=== PATIENT | female | born 1955 | race African-American/Black ===

== ENCOUNTER 2017-07-09 12:50 | Inpatient (IN) | payer MEDICAID ==
[2017-07-09 13:42] LABS: BASOPHILS 0.1 % (0-2); EOSINOPHILS 0.1 % (0-7); HEMATOCRIT 37.5 % (36.0-48.0); HEMOGLOBIN 12.7 g/dL (12-16); IMMATURE GRANULOCYTES 0.3 % (0-5); LYMPHOCYTES 8.4 % (15-50); MCH 33.9 pg (26.0-34.0); MCHC 33.9 g/dL (31.0-37.0); MEAN PLATELET VOLUME 10.5 fL (7.4-10.4); MONOCYTES 6.8 % (2-11); NEUTROPHILS 84.3 % (40-80); PLATELET COUNT 269 10x3/uL (130-400); RBC 3.75 10x6/uL (4.00-5.40); RDW 14.1 % (11.5-14.5); WBC 14.5 10x3/uL (4.8-10.8)
[2017-07-09 14:28] LABS: APTT 22.6 SECONDS (22.8-39.4); INR 0.89 (0.85-1.17); PROTIME 11.9 SECONDS (11.6-15.0)
[2017-07-09 14:36] LABS: ALBUMIN 3.7 g/dL (3.4-5.0); ANION GAP 13.7 mmol/L (8-16); BILIRUBIN - TOTAL 0.34 mg/dL (0.2-1.3); CALCIUM 10.4 mg/dL (8.5-10.1); CARBON DIOXIDE 29.8 mmol/L (21.0-32.0); CREATININE - SERUM 5.2 mg/dL (0.6-1.3); POTASSIUM - SERUM 3.5 mmol/L (3.5-5.1); PROTEIN - SERUM 8.3 g/dL (6.4-8.2)
[2017-07-09 16:59] VITALS: BP 131/80; BMI 33.9
--- NOTE | 2017-07-09 16:59 | NUR ---
ASSESSMENT COMPLETE AT THIS TIME AAOX4 RESP UNLABORED NG TUBE PATENT TO RT NARE CONNECTED TO LOW INTERMITTENT SUCTION CANISTER NOTED WITH SMALL AMOUNT OF COFFEE GROUND COLORED EMESIS WILL CONTINUE TO MONITOR
[2017-07-09] MEDS ORDERED: ACETAMINOPHEN325 MG PO (17:09)
[2017-07-09] MEDS ORDERED: MEGACE400 MG/10 (17:11)
[2017-07-09] MEDS ORDERED: LANTUS INSULIN10 ML SC (17:17)
[2017-07-09] MEDS ORDERED: REGLAN10 MG PO (17:18)
[2017-07-09] MEDS ORDERED: TOPROL XL25 MG PO (17:19)
[2017-07-09] MEDS ORDERED: TOPROL XL25 MG (17:21)
[2017-07-09] MEDS ORDERED: PRAVACHOL40 MG PO (17:22)
[2017-07-09] MEDS ORDERED: RENVELA800 MG PO (17:23)
[2017-07-09] MEDS ORDERED: FLUDROCORTISON0.1 MG PO (17:24)
[2017-07-09] MEDS ORDERED: PHENERGAN25 M1 PO (17:25)
--- NOTE | 2017-07-09 17:34 | NUR ---
RECIEVED FROM ER. ALERT , ORIENTED TO NAME AND HEALTH INFO. CALL LIGHT IN REACH. NG TUBE TO RIGHT NARE WITH INTERMITTED SUCTION. MO CATH TO GRAVITY BAG. IV TO RIGHT SHOULDER WITH PROTONICX AT 10CC/HR. DENIES ANY NEEDS
--- NOTE | 2017-07-09 18:33 | NUR ---
LYING QUIETLY, NO NEEDS VOICED. NG TUBE FUNCTIONING WELL. WILL MONITOR
--- NOTE | 2017-07-09 19:30 | NUR ---
DR SMITH PRESENT ASSESSING PATIENT. OBTAINED ORDER TO CHECK BLOOD SUGAR ACHS LOW SLIDING SCALE WITH HUMALOG. ASSESSED RT NARE NG TUBE SET TO LIS, SMALL AMT OF COFFEE GROUND EMESIS. HAS LEFT AVF WITH GOOD BRUIT/THRILL. MO INTACT/PATENT DRAINING DK ZURDO URINE TO GRAVITY. WILL CONT PLAN OF CARE.
[2017-07-09 20:00] VITALS: BP 160/72
[2017-07-10] VITALS: BP 150/74
[2017-07-10 04:00] VITALS: BP 180/82
--- NOTE | 2017-07-10 06:13 | NUR ---
REQUESTED BEDPAN. HAD A BM OF A LG FORMED BLACKISH STOOL. TOOK SAMPLE TO LAB PER ORDER FOR OCCULT BLOOD.
[2017-07-10 07:58] VITALS: BP 162/81
--- NOTE | 2017-07-10 08:15 | NUR ---
ASSESSMENT COMPLETED.RIGHT SHOULDER IV WITH PROTONIX AT 10MG HR AND NS AT 75CC HR,BLIND IN RIGHT EYE. LEFT ARM AVF. MO CATH PATENT TO GRAVITY BAG. NG TUBE TO RIGHT NARE TO LOW INTERMITENT SUCTION. RHETT JACKSON
--- NOTE | 2017-07-10 08:19 | NUR ---
RESTING QUIETLY EYES CLOSED RESP UNLABORED NG TUBE PATENT TO RT NARE TO LOW INTERMITTENT SUCTION COFFEE GROUND COLORED DRAINAGE IN CANISTER NAD NOTED
[2017-07-10 09:17] LABS: HEMOGLOBIN A1C 8.6 % (4.8-6.0)
[2017-07-10 11:14] VITALS: BP 136/80
[2017-07-10 14:22] LABS: APPEARANCE CLEAR (CLEAR); COLOR YELLOW (YELLOW); SPECIFIC GRAVITY 1.015 (1.005-1.020)
[2017-07-10 14:23] LABS: BILIRUBIN NEGATIVE (NEGATIVE); GLUCOSE 500 mg/dL (NEGATIVE); KETONE NEGATIVE (NEGATIVE); NITRITE NEGATIVE (NEGATIVE); PROTEIN 3+ mg/dL (NEGATIVE); UROBILINOGEN NORMAL (NORMAL)
[2017-07-10 14:24] LABS: EPITHELIAL CELLS 0-5 /hpf (0-5); WHITE CELLS - URINE 25-50 /hpf (0-5)
[2017-07-10 14:25] LABS: BACTERIA MANY /hpf (NONE SEEN)
[2017-07-10 16:18] VITALS: BP 130/50
[2017-07-10 20:00] VITALS: BP 128/66
--- NOTE | 2017-07-10 20:00 | NUR ---
PT RESTING IN BED. EYES CLOSED. NONLABORED RESPIRATIONS ON ROOM AIR. MO PATENT TO BEDSIDE DRAIN BAG. IV TO RIGHT SHOULDER WITH PROTONIX AT 10ML/HR. FSBS 261, PT WILL BE NPO AFTER MIDNIGHT FOR EGD IN AM, SO WILL HOLD ANY SLIDING SCALE FOR TONIGHT. RESERVE LEFT ARM FOR AVF. SEE SHIFT ASSESSMENT. CPOC.
--- NOTE | 2017-07-10 21:30 | NUR ---
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 THEY DID PROVIDE THE NAME AND NUMBER OF PT'S SON, PENELOPE, FOR A FAMILY CONTACT. REVIEWED CONSENT FOR EGD FORM, CONSENT FOR ANESTHESIA, AND BLOOD CONSENT WITH PATIENT AND SHE WAS ONLY ABLE TO PROVIDE HER CONSENT VIA A ESSENCE, WITNESSED X 2 STAFF. CALLED AND SPOKE WITH PT'S SON, PENELOPE, AND NOTIFIED OF PT'S PLANNED EGD IN AM. HIS NUMBER IS [phone].
[2017-07-11] VITALS: BP 147/70
[2017-07-11 04:00] VITALS: BP 134/67
--- NOTE | 2017-07-11 04:52 | NUR ---
PT RESTING IN BED. NO DISTRESS. PROTONIX DRIP INFUSING. NPO SINCE MIDNIGHT. CPOC.
[2017-07-11 05:12] LABS: BASOPHILS 0.1 % (0-2); EOSINOPHILS 3.5 % (0-7); HEMATOCRIT 32.8 % (36.0-48.0); HEMOGLOBIN 10.6 g/dL (12-16); IMMATURE GRANULOCYTES 0.2 % (0-5); LYMPHOCYTES 26.4 % (15-50); MCH 32.9 pg (26.0-34.0); MCHC 32.3 g/dL (31.0-37.0); MCV 101.9 fL (80.0-100.0); MEAN PLATELET VOLUME 10.8 fL (7.4-10.4); MONOCYTES 6.9 % (2-11); NEUTROPHILS 62.9 % (40-80); PLATELET COUNT 225 10x3/uL (130-400); RBC 3.22 10x6/uL (4.00-5.40); RDW 13.7 % (11.5-14.5)
[2017-07-11 05:14] LABS: WBC 10.3 10x3/uL (4.8-10.8)
[2017-07-11 05:23] LABS: ANION GAP 14.2 mmol/L (8-16); CALCIUM 9.4 mg/dL (8.5-10.1); CARBON DIOXIDE 29.3 mmol/L (21.0-32.0); PHOSPHOROUS 3.8 mg/dL (2.5-4.9); POTASSIUM - SERUM 3.5 mmol/L (3.5-5.1)
[2017-07-11 05:24] LABS: CREATININE - SERUM 7.5 mg/dL (0.6-1.3)
--- NOTE | 2017-07-11 07:50 | NUR ---
RESTS WITH EYES CLOSED. IV PATENT. CALL LIGHT IN REACH. WILL CONT. PLAN OF CARE.
[2017-07-11 08:00] VITALS: BP 132/72
--- NOTE | 2017-07-11 08:15 | NUR ---
ASSESSMENT DONE. DENIES NEEDS.
--- NOTE | 2017-07-11 09:38 | NUR ---
0930-IV IN RIGHT SHOULDER UNABLE TO FLUSH, REDNES TO SITE AND SURROUNDING AREAS. CATHETER DISCONTINUED, CATH TIP INTACT. RESITED IV TIMES THREE ATTEMPTS WITH 24G 3/4 INCH CATHETER TO LEFT UPPER CHEST.
[2017-07-11 10:14] VITALS: BMI 33.8
[2017-07-11 12:00] VITALS: BP 167/72
[2017-07-11 16:00] VITALS: BP 154/80
--- NOTE | 2017-07-11 17:00 | NUR ---
TO HD PER BED
--- NOTE | 2017-07-11 21:03 | NUR ---
REPORT RECEIVED FROM DIALYSIS. 2000ML REMOVED. PT NOW BROUGHT BACK TO ROOM VIA BED. ALERT/ORIENTED. HUNGRY. HEATED UP SAVED DINNER TRAY AND PT NOW EATING HER DINNER. PT REQUESTED TO SPEAK WITH HER SON PENELOPE. PLACED PHONE CALL FOR HER AND THEN TRANSFERRED IT TO ROOM WHERE SHE WAS ABLE TO SPEAK TO HIM. LEFT AVF WITH DRESSING C/D/I. MO PATENT TO BEDSIDE DRAIN BAG. PT IS BLIND IN RIGHT EYE AND HAS REDUCED VISION IN LEFT EYE. SEE SHIFT ASSESSMENT. CPOC.
[2017-07-12] VITALS: BP 116/59
[2017-07-12 04:10] VITALS: BP 110/65
--- NOTE | 2017-07-12 04:15 | NUR ---
AFTER EATING A LARGE AMOUNT OF SNACKS AND HER DINNER TRAY, PT FINALLY WENT TO SLEEP. NO DISTRESS. RESPS EVEN/NONLABORED. CHELY PATENT TO BEDSIDE DRAIN BAG. CPOC. CALL LIGHT IN REACH.
[2017-07-12 04:38] LABS: BASOPHILS 0.1 % (0-2); EOSINOPHILS 3.5 % (0-7); HEMATOCRIT 33.6 % (36.0-48.0); HEMOGLOBIN 11.2 g/dL (12-16); IMMATURE GRANULOCYTES 0.2 % (0-5); LYMPHOCYTES 26.7 % (15-50); MCH 33.5 pg (26.0-34.0); MCHC 33.3 g/dL (31.0-37.0); MCV 100.6 fL (80.0-100.0); MEAN PLATELET VOLUME 11.3 fL (7.4-10.4); MONOCYTES 7.1 % (2-11); NEUTROPHILS 62.4 % (40-80); PLATELET COUNT 209 10x3/uL (130-400); RBC 3.34 10x6/uL (4.00-5.40); RDW 13.3 % (11.5-14.5)
[2017-07-12 05:17] LABS: CALCIUM 9.3 mg/dL (8.5-10.1); CARBON DIOXIDE 28.8 mmol/L (21.0-32.0)
[2017-07-12 05:33] LABS: ANION GAP 14.2 mmol/L (8-16)
[2017-07-12 06:09] LABS: CREATININE - SERUM 5.4 mg/dL (0.6-1.3)
[2017-07-12 08:00] VITALS: BP 181/86
--- NOTE | 2017-07-12 08:28 | NUR ---
RESTS IN BED WITH CALL LIGHT IN REACH. NURSE AT BS. WILL CONT. PLAN OF CARE.
--- NOTE | 2017-07-12 08:55 | NUR ---
ASSESSMENT DONE. DENIES NEEDS.
[2017-07-12 11:21] VITALS: BP 151/71
[2017-07-12] MEDS ORDERED: OMNICEF300 MG PO (13:51)
[2017-07-12] MEDS ORDERED: PROTONIX I40 MG/VIAL PO (13:58)
[2017-07-12] MEDS ORDERED: HUMALOG 30100 UNITS/ SC (13:58)
[2017-07-12] MEDS ORDERED: CARAFATE1 G/10 ML PO (13:58)
--- NOTE | 2017-07-12 14:08 | NUR ---
CALLED [facility] PER PATIENT PERMISSION TO SEE ABOUT HER HAVING THE FLU SHOT ALREADY THIS YEAR. I SPOKE WITH THE CHARGE NURSE AND SHE RECEIVED A FLU SHOT ON 07/01/17.
[2017-07-12] MEDS ORDERED: PROTONIX40 MG PO ×3 (14:35→14:40)
[2017-07-12] MEDS ORDERED: LOPRESSOR25 MG PO (15:01)
--- NOTE | 2017-07-12 15:09 | NUR ---
Patient Name: DEMETRIO VELAZQUEZ Admission Status: ER Accout number: [id number] Admission Date: 07-09-2017 : 1955 Admission Diagnosis:HEMATEMESIS Attending: ELSA SMITH Current LOS: 3 Anticipated DC Date: 07-12-2017 Planned Disposition: Nursing Facility [facility] Cert Primary Insurance: MEDICAID [place] PLANNED EXTERNAL PROVIDER: [facility] [employer] [facility] MEDICAID BED Discharge Planning Comments: * Is the patient Alert and Oriented? Yes 0 * How many steps to enter\exit or inside your home? NONE 0 * PCP DR. MARTIN 0 * Pharmacy [facility] 0 * Preadmission Environment Biostatistician [facility] 0 * Facility [facility] * ADLs Partial Dependent 0 * Partial ADLs (Assistance needed) Bathing Medication Management Transfers 0 * Equipment Other 0 * Other Equipment ALL MEDICAL EQUIPMENT PROVIDED BY FACILITY 0 * List name and contact numbers for known caregivers / representatives who currently or will assist patient after discharge: PENELOPE VELAZQUEZ, SON, 0 * Community resources currently utilized None 0 * Please name any agencies selected above. NONE 0 * Additional services required to return to the preadmission environment? No 0 * Can the patient safely return to the preadmission environment? Yes 0 * Has this patient been hospitalized within the prior 30 days at any hospital? No 0 CM RECEIVED DISCHARGE ORDER, MET WITH PT IN ROOM WHO REPORTS THAT SHE LIVES AT [facility] AND HAS BEEN THERE FOR THREE YEARS. PT REPORTS FEELING SAFE THERE AND WILL RETURN AT DISCHARGE. CM ASKED IF FAMILY OR FRIENDS NEED TO BE NOTIFIED OF RETURN TODAY, PT DENIES NEED REPORTS ALL FAMILY LIVE OUT OF STATE. PT IN AGREEMENT WITH RETURN TO [facility] TODAY, STATES SHE IS ABLE TO SIT IN [facility] FOR TRANSPORT. CM CALLED [facility], [facility]IA[facility] FOR [facility], , ASKED FOR [facility] RETURNING OFFICER TODAY, SCHEDULED FOR [phone]. PT NOTIFIED.. CM FAXED DISCHARGE INFORMATION TO [facility] VIA [facility] AT [phone]. PREPARATION OPERATOR NURSE NOTIFIED. NURSE REPORT TO BE CALLED TO [facility] AT [phone]. [facility] TO RETURNING OFFICER PT AT [phone] TODAY. Flake Cutter Operator: Oswaldo Craig
--- NOTE | 2017-07-12 15:36 | NUR ---
REPORT CALLED TO CYN AT [facility].
--- NOTE | 2017-07-12 16:41 | NUR ---
DC TO [facility] PER [facility]
== END 2017-07-12 16:42 | DRG 377 ==
LOC: D.ER 12:50 → D.M2 15:23 → D.SDCHOLD 07-11 14:29 → D.M2 07-11 14:31
PROVIDERS: Emergency Medicine; Internal Medicine Gastroenterology; Internal Medicine Nephrology; ADMIT Family Medicine
PROC: 0T9B70Z Drainage of Bladder with Drainage Device, Via Natural or Artificial Opening (ICD-10-PCS; 2017-07-09)
PROC: 0D9670Z Drainage of Stomach with Drainage Device, Via Natural or Artificial Opening (ICD-10-PCS; 2017-07-09)
PROC: 5A1D70Z Performance of Urinary Filtration, Intermittent, Less than 6 Hours Per Day (ICD-10-PCS; 2017-07-11)
PROC: 0DB68ZX Excision of Stomach, Via Natural or Artificial Opening Endoscopic, Diagnostic (ICD-10-PCS; principal; 2017-07-11 14:30)
DX: K92.2 Gastrointestinal hemorrhage, unspecified (principal); N18.6 End stage renal disease; K22.10 Ulcer of esophagus without bleeding; I12.0 Hypertensive chronic kidney disease with stage 5 chronic kidney disease or end stage renal disease; N39.0 Urinary tract infection, site not specified; E11.43 Type 2 diabetes mellitus with diabetic autonomic (poly)neuropathy; K31.84 Gastroparesis; Z79.4 Long term (current) use of insulin; E11.22 Type 2 diabetes mellitus with diabetic chronic kidney disease; Z99.2 Dependence on renal dialysis; F20.9 Schizophrenia, unspecified; F03.90 Unspecified dementia, unspecified severity, without behavioral disturbance, psychotic disturbance, mood disturbance, and anxiety; E78.5 Hyperlipidemia, unspecified; K44.9 Diaphragmatic hernia without obstruction or gangrene; K29.70 Gastritis, unspecified, without bleeding; H54.3 Unqualified visual loss, both eyes; Z91.11 Patient's noncompliance with dietary regimen